=== PATIENT | female | born 1970 | race Two or more races ===

== ENCOUNTER 2019-03-08 16:15 | Emergency (ER) | payer MEDICAID ==
[~2019-03-08] VITALS: Ht 160 cm; Wt 78.7 kg
[2019-03-08 17:16] VITALS: BP 130/73
[2019-03-08] MEDS ORDERED: IBUPROFEN 600 MG TABLET PO ONE (19:00)
[2019-03-08] MEDS ORDERED: IBUPROFEN 200 MG TABLET ONE (19:11)
--- NOTE | 2019-03-08 19:23 | NUR ---
DC EDUCATION PROVIDED, PT DEMONSTRATES UNDERSTANDING. PT AMBULATED STEADILY TO DC WITH RN
== END 2019-03-08 19:24 | disposition home or self-care (01) ==
LOC: ED 19:18
DX: S61.412A Laceration without foreign body of left hand, initial encounter (principal); W26.0XXA Contact with knife, initial encounter; Y93.89 Activity, other specified; Y92.009 Unspecified place in unspecified non-institutional (private) residence as the place of occurrence of the external cause; Y99.8 Other external cause status
CPT/HCPCS: 99283